=== PATIENT | female | born 1970 | race Caucasian/White ===

== ENCOUNTER 2021-01-27 14:52 | Emergency (ER) | payer OTHER ==
[~2021-01-27] VITALS: Ht 149.9 cm; Wt 78.5 kg
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
[2021-01-27] MEDS ORDERED: VISTARIL50 MG PO (15:07)
[2021-01-27] MEDS ORDERED: ZOLOFT50 M1 PO (15:07)
[2021-01-27] MEDS ORDERED: IBUPROFEN 800800 M1 PO (16:49)
[2021-01-27] MEDS ORDERED: METHOCARBAMOL500 M2 PO (16:49)
[2021-01-27 16:55] VITALS: BP 123/75
== END 2021-01-27 16:55 | disposition home or self-care (01) ==
LOC: M.ERS 14:52
DX: S16.1XXA Strain of muscle, fascia and tendon at neck level, initial encounter (principal); R51.9 Headache, unspecified; R11.0 Nausea; F41.0 Panic disorder [episodic paroxysmal anxiety]; Z79.899 Other long term (current) drug therapy; Z88.0 Allergy status to penicillin; V89.2XXA Person injured in unspecified motor-vehicle accident, traffic, initial encounter; Y93.89 Activity, other specified; Y92.89 Other specified places as the place of occurrence of the external cause; Y99.8 Other external cause status